=== PATIENT | female | born 1955 | race Caucasian/White ===

== ENCOUNTER 2020-10-29 08:14 | Emergency (ER) | payer MEDICARE, OTHER ==
[2020-10-29 09:17] LABS: HEMOGLOBIN 15.5 gm/dl (12.3-15.3); RED BLOOD COUNT 4.94 M/UL (4.00-5.10); WHITE BLOOD COUNT 8.5 K/UL (4.5-11.0)
[2020-10-29 09:51] LABS: BUN/CREATININE RATIO 11 (0-10)
== END 2020-10-29 13:30 | disposition home or self-care (01) ==
LOC: ER1 08:14
PROVIDERS: Student in an Organized Health Care Education/Training Program
DX: R29.898 Other symptoms and signs involving the musculoskeletal system (principal); F17.210 Nicotine dependence, cigarettes, uncomplicated; I10 Essential (primary) hypertension; Z90.710 Acquired absence of both cervix and uterus; Z88.0 Allergy status to penicillin; Z79.82 Long term (current) use of aspirin
CPT/HCPCS: 80053; 80307; 81001; 82550; 82553; 83605; 83735; 83874; 83880; 84100; 84439; 84443; 84484; 85025; 99284; G0480